=== PATIENT | female | born 1985 | race African-American/Black ===

== ENCOUNTER 2024-08-27 06:11 | Day surgery (SDC) | payer OTHER ==
[2024-08-25 10:31] VITALS: BMI 30.9
[2024-08-27] MEDS ORDERED: PHENAZOPYRIDINE HCL 100 MG TABLET (FP) ONE (10:31)
[2024-08-27] MEDS: PHENAZOPYRIDINE HCL 100 MG TABLET (FP) PO ONE (10:35)
[2024-08-27] MEDS ORDERED: PROPOFOL 20 ML ONE (12:06)
[2024-08-27] MEDS ORDERED: LIDOCAINE HCL 2% 100 MG/5 ML DISP.SYRIN ONE (12:06)
[2024-08-27] MEDS ORDERED: MIDAZOLAM HCL 2 MG/2 ML SINGLE DOSE VIAL ONE (12:06)
[2024-08-27] MEDS ORDERED: ROCURONIUM BROMIDE 50 MG/5 ML SYRINGE ONE (12:06)
[2024-08-27] MEDS ORDERED: ONDANSETRON 4 MG/2 ML VIAL ONE (12:06)
[2024-08-27] MEDS ORDERED: DEXAMETHASONE SOD PHOSPHATE 4 MG/1 ML VIAL ONE (12:06)
[2024-08-27] MEDS: ceFAZolin 2 GRAM PREMIX BAG IVPB ONE ×2 (12:32)
[2024-08-27] MEDS ORDERED: SUGAMMADEX SODIUM 200 MG/2 ML VIAL ONE (12:36)
[2024-08-27] MEDS ORDERED: ONDANSETRON 4 MG/2 ML VIAL IVPUSH PRN (12:55)
[2024-08-27] MEDS ORDERED: oxyCODONE HCL 5 MG TABLET PO PRN (12:55)
[2024-08-27] MEDS ORDERED: LACTATED RINGERS SOLUTION 1,000 ML IV SCH (13:00)
[2024-08-27] MEDS: ACETAMINOPHEN 1000 MG/100 ML BAG IVPB ONE (14:15)
[2024-08-27] MEDS: ACETAMINOPHEN INJECTION 100 ML ONE (14:20)
[2024-08-27 14:57] VITALS: RESP 18
[2024-08-27 17:10] VITALS: BP 131/89; PULSE 99; TEMP 97.3
== END 2024-08-27 17:40 | disposition home or self-care (01) ==
LOC: JASU-SURG 06:11
PROVIDERS: ATTEND Obstetrics & Gynecology
PROC: 0U5B4ZZ Destruction of Endometrium, Percutaneous Endoscopic Approach (ICD-10-PCS; principal; 2024-08-27 12:00)
DX: N80.00 Endometriosis of the uterus, unspecified (principal); N83.8 Other noninflammatory disorders of ovary, fallopian tube and broad ligament
CPT/HCPCS: 58662; S2900; 81025; 86850; 86900; 86901; 88304-TC; 88305-TC; 94760; J0131